=== PATIENT | male | born 1995 | race Caucasian/White ===

== ENCOUNTER 2020-04-23 18:35 | Emergency (ER) | payer OTHER ==
[~2020-04-23] VITALS: Ht 170.2 cm; Wt 84.9 kg
[2020-04-23 18:36] VITALS: BP 154/93
--- NOTE | 2020-04-23 19:24 | REP ---
Clinical: Trauma. Technique: AP, lateral, bilateral oblique views of the left first digit. Findings: Small bony fragments are identified underlying the terminal tuft consistent with fracture. No subcutaneous emphysema. Remainder examination appears normal. Impression: Small fracture fragments from the terminal tuft. Electronically Signed by Sandeep Garcia MD 04/23/2020 07:16 P
== END 2020-04-23 19:40 | disposition home or self-care (01) ==
LOC: M ED 18:35
DX: S62.522A Displaced fracture of distal phalanx of left thumb, initial encounter for closed fracture (principal); S60.112A Contusion of left thumb with damage to nail, initial encounter; W27.8XXA Contact with other nonpowered hand tool, initial encounter; W22.8XXA Striking against or struck by other objects, initial encounter; Y92.9 Unspecified place or not applicable; Y93.9 Activity, unspecified; Y99.8 Other external cause status